=== PATIENT | female | born 1970 | race Caucasian/White ===

== ENCOUNTER → 2016-11-28 14:59 | Emergency (ER) | payer OTHER ==
[~2016-11-28 14:59] MED LIST: CLONIDINE PO; FLEXERIL PO; FLEXERIL10 MG PO; KEFLEX500 M1 PO; METHADONE PO; METHADOSE PO; MOTRIN400 MG PO; PERCOCET 7.5/321 TAB PO; PHENERGAN PO; VOLTAREN75 MG PO
== END | disposition home or self-care (01) ==
LOC: CFTX 14:59
DX: L02.414 Cutaneous abscess of left upper limb (principal); F17.210 Nicotine dependence, cigarettes, uncomplicated; Z90.710 Acquired absence of both cervix and uterus; Z90.49 Acquired absence of other specified parts of digestive tract; Z98.51 Tubal ligation status; Z79.899 Other long term (current) drug therapy; Z88.5 Allergy status to narcotic agent; Z88.0 Allergy status to penicillin; Z88.6 Allergy status to analgesic agent
CPT/HCPCS: 99282